=== PATIENT | male | born 2000 | race African-American/Black ===

== ENCOUNTER 2020-05-05 18:08 | Emergency (ER) | payer MEDICAID ==
[~2020-05-05] VITALS: Ht 185.4 cm; Wt 77.1 kg
[~2020-05-05 18:08] MED LIST: ZPAK PO
[2020-05-05 18:26] LABS: URINE BILIRUBIN NEGATIVE (Negative); URINE BLOOD NEGATIVE (Negative); URINE CLARITY CLEAR; URINE COLOR YELLOW; URINE GLUCOSE-RANDOM NEGATIVE (Negative); URINE KETONES NEGATIVE (Negative); URINE LEUKOCYTES-REFLEX TRACE (Negative); URINE NITRITE-REFLEX NEGATIVE (Negative); URINE PROTEIN NEGATIVE (Negative); URINE SPECIFIC GRAVITY 1.025 (1.005-1.030)
[2020-05-05 18:33] LABS: SQUAMOUS NONE SEEN /LPF (0-3); WBC CLUMPS Few (None Seen)
[2020-05-05 18:34] LABS: URINE RBC None Seen /HPF (0-2)
[2020-05-05 18:35] LABS: BACTERIA-REFLEX >30 Many /HPF (None Seen); CASTS None Seen /LPF (None Seen); CRYSTALS None Seen /LPF (None Seen); MUCUS 4-6 Moderate strn/LPF (None Seen)
[2020-05-05] MEDS ORDERED: DOXYCYCLINE 10100 MG PO (19:13)
[2020-05-05 19:35] VITALS: BP 146/68
== END 2020-05-05 19:35 | disposition home or self-care (01) ==
LOC: M.ERS 18:08
PROVIDERS: Physician Assistant
DX: A64 Unspecified sexually transmitted disease (principal); N39.0 Urinary tract infection, site not specified